=== PATIENT | female | born 1960 | race Caucasian/White ===

== ENCOUNTER → 2017-03-21 | Outpatient (CLI) | payer OTHER | LOC: NUC 14:36 | DX: M85.88 Other specified disorders of bone density and structure, other site (principal); Z78.0 Asymptomatic menopausal state ==

== ENCOUNTER 2018-01-22 05:30 | Inpatient (IN) | payer OTHER ==
[~2018-01-22] VITALS: Ht 162.6 cm; Wt 80.7 kg
--- NOTE | ~2018-01-22 | EKG ---
[address] [address] ELECTROCARDIOGRAM REPORT Name: BETSEY RUCKER Room #: 150-5 ADM IN M.R.#: [id number] Admission: 01/22/18 Attend Phys: Song Meehan Discharge: Date of : 60 Report #: [id number] THIS REPORT FOR: //name// [facility] Test Date: 2018-01-22 Test Time: 07:10:18 Pat Name: BETSEY RUCKER Department: Room: 150 5 Gender: F Terminal Manager: BUBBA : 1960 Requested By: Song Ying Order Number: [id number] MD: Jv Kennedy Measurements Intervals [place] Rate: 86 P: 32 AR: 157 QRS: 16 QRSD: 91 T: 12 QT: 366 QTc: 438 Interpretive Statements Sinus rhythm Low voltage, precordial leads Baseline wander in lead(s) V2 No previous ECG available for comparison Electronically Signed On 01-22-2018 7:51:26 CDT by Jv Kennedy [email or web address] <ELECTRONICALLY SIGNED> By: Jv Kennedy MD, [facility] 01/22/18 [phone] Jv Kennedy MD, [facility] /EPI
--- NOTE | ~2018-01-22 | PATH ---
[facility] [place] [address] [address] PATHOLOGY RPT PROCEDURE Name: CHAIMBETSEY Aaron Room #: 407-P DIS IN M.R.#: [id number] Admission: 01/22/18 Date of : 60 Discharge: 01/24/18 Report #: [id number] Path Case #: [id number] [facility] Accession Number: [id number] . 01 Material submitted: . SIGMOID COLON AND STAPLE RINGS . 01 Clinical history: . Diverticulitis . 02 Diagnosis: Large intestine, sigmoid colon, colectomy: - Marked acute and chronic diverticulitis in a background of extensive diverticulosis. - Margins of resection unremarkable. - One reactive lymph node. - Anastomotic rings showing unremarkable mucosa. (IUV:mgr; 01/25/18) QRQ/01/25/2018 . 02 Electronically signed: . Mimi Warren MD, Pathologist NPI- [id number] . 01 Gross description: . The specimen is received in formalin labeled "Betsey Rucker, sigmoid colon with staple rings". Received is a segment of large bowel measuring 17.5 cm in length by 2.9 cm in diameter. One margin is open, and the opposite margin is stapled closed. A large amount of pericolic fat is attached, measuring up to 3.6 cm in thickness. The serosa is pale anand and smooth in appearance. The specimen is opened along the antimesenteric line to reveal a pale anand mucosa with prominent mucosal folds. Multiple diverticula (over 100) are present ranging from 0.3 to 1.9 cm in depth, with the largest penetrating the muscularis. A single diverticulum contains soft, light brown fecal material; no fecaliths are identified grossly. An abscess pocket is noted in the soft tissue measuring 0.8 cm in maximum dimension indicating a possible ruptured diverticulum; a rupture cannot be identified grossly. The abscess pocket extends to within 0.1 cm of the nearest serosal surface (inked black). Lymph nodes are not identified grossly. . Also received within the specimen container are two anastomotic rings of light anand mucosa, one with a suture present measuring 1.7 x 1.3 x 1.3 cm in greatest dimensions and one without a suture present measuring 1.8 x 1.3 x 0.6 cm in greatest dimensions. The specimen is submitted representatively as follows: . [address] [address] PATHOLOGY RPT PROCEDURE Name: BETSEY RUCKER Room #: 407-P DIS IN M.R.#: [id number] Admission: 01/22/18 Date of : 60 Discharge: 01/24/18 Report #: [id number] Path Case #: [id number] A1: Open large bowel margin A2: Stapled large bowel margin A3-A4: Fertilizer Loader diverticula A5: Abscess pocket, community health program representative A6: Sutured anastomotic ring, community health program representative A7: Non-sutured anastomotic ring A8-A9: Additional sections of abscess pocket (DAC; 01/24/2018) XDC/XDC . 02 Pathologist provided ICD-10: K57.30, K57.32 . 02 CPT . 745027 Performed at: [address], [place] [id number] MD Brice Houston MD Phone: [phone] Performed at: [address] [id number] MD Mimi Warren MD Phone: [phone]
[~2018-01-22 05:30] MED LIST: ATIVAN0.5 MG PO; NAPROSYN500 MG PO; OMEPRAZOLE 20 M20 MG PO
[2018-01-22 07:31] LABS: HEMATOCRIT 40.1 % (37.0-47.0); HEMOGLOBIN 13.6 gm/dL (12.0-15.0)
[2018-01-22 08:17] VITALS: BP 118/69
[2018-01-22 15:10] VITALS: BP 124/84
[2018-01-22 15:40] VITALS: BP 120/79
[2018-01-22 16:10] VITALS: BP 127/75
[2018-01-22 17:10] VITALS: BP 125/84
[2018-01-22 20:00] VITALS: BP 132/87
[2018-01-23] VITALS: BP 122/79
[2018-01-23 04:00] VITALS: BP 118/72
[2018-01-23 06:00] LABS: ABSOLUTE NEUTROPHILS 12.8 thou/uL (1.4-8.2); HEMATOCRIT 37.7 % (37.0-47.0); HEMOGLOBIN 12.8 gm/dL (12.0-15.0); LYMPHOCYTES 6.4 % (24.0-44.0); MCH 28.8 pg (26.0-34.0); MCHC 33.9 g/dL (28.0-37.0); MONOCYTES 8.9 % (1.0-8.0); PLATELET COUNT 255 thou/uL (150-400); POLYS 84.7 % (36.0-66.0); RBC 4.43 mil/uL (4.20-5.00); RDW 12.8 % (10.5-14.5); WBC 15.1 thou/uL (4.0-11.0)
[2018-01-23 06:06] LABS: CALCIUM 8.2 mg/dL (8.5-10.1); POTASSIUM 3.7 mmol/L (3.5-5.1)
[2018-01-23 09:15] VITALS: BP 114/66
[2018-01-23 10:01] VITALS: BP 114/66
[2018-01-23 20:00] VITALS: BP 130/80
[2018-01-24 04:00] VITALS: BP 112/73
[2018-01-24 06:59] LABS: ABSOLUTE NEUTROPHILS 6.2 thou/uL (1.4-8.2); BASOPHILS 0.6 % (0.0-2.0); EOSINOPHILS 1.5 % (0.0-3.0); HEMATOCRIT 33.3 % (37.0-47.0); HEMOGLOBIN 11.5 gm/dL (12.0-15.0); LYMPHOCYTES 14.3 % (24.0-44.0); MCH 29.9 pg (26.0-34.0); MCHC 34.7 g/dL (28.0-37.0); MCV 86.2 fL (80.0-100.0); MONOCYTES 10.3 % (1.0-8.0); PLATELET COUNT 200 thou/uL (150-400); POLYS 73.3 % (36.0-66.0); RBC 3.86 mil/uL (4.20-5.00); RDW 12.8 % (10.5-14.5); WBC 8.5 thou/uL (4.0-11.0)
[2018-01-24 07:07] LABS: CALCIUM 8.3 mg/dL (8.5-10.1); POTASSIUM 3.5 mmol/L (3.5-5.1)
[2018-01-24] MEDS ORDERED: ACETAMINOPHEN325 M1 PO (07:33)
[2018-01-24] MEDS ORDERED: HYDROCODON-ACE1 EAC7 PO (07:33)
[2018-01-24] MEDS ORDERED: TRAMADOL 50 MG50 MG PO (07:33)
[2018-01-24] MEDS ORDERED: ONDANSETRON HCL4 M2 PO (07:33)
[2018-01-24] MEDS ORDERED: NORFLEX100 MG PO (07:33)
[2018-01-24 07:41] VITALS: BP 128/67
[2018-01-24 11:01] VITALS: BP 128/67
== END 2018-01-24 12:09 | disposition home or self-care (01) | DRG 331 ==
LOC: 4N 05:30 → TBA 05:30 → PRE 06:46 → OR 14:17 → EDSTATUS 14:23 → PRE 14:31 → 4N 15:12 → ENTRNSPT 01-24 11:30 → EDTRNSPTSTS 01-24 11:32 → 4N 01-24 12:09
PROVIDERS: Surgery
PROC: 0DTN4ZZ Resection of Sigmoid Colon, Percutaneous Endoscopic Approach (ICD-10-PCS; principal; 2018-01-22)
PROC: 0DNW4ZZ Release Peritoneum, Percutaneous Endoscopic Approach (ICD-10-PCS; principal; 2018-01-22)
DX: K57.32 Diverticulitis of large intestine without perforation or abscess without bleeding (principal); K66.0 Peritoneal adhesions (postprocedural) (postinfection); J45.909 Unspecified asthma, uncomplicated; G56.00 Carpal tunnel syndrome, unspecified upper limb; K21.9 Gastro-esophageal reflux disease without esophagitis; G47.00 Insomnia, unspecified; Z88.1 Allergy status to other antibiotic agents; Z79.899 Other long term (current) drug therapy; Z83.3 Family history of diabetes mellitus; Z82.49 Family history of ischemic heart disease and other diseases of the circulatory system; Z80.3 Family history of malignant neoplasm of breast; Z87.891 Personal history of nicotine dependence
CPT/HCPCS: 10790; 49000; 50010; 50101; 50249; 50386; 50455; 50525; 50555; 51398; 51437; 51489; 52182; 52265; 53310; 54022; 54118; 56524; 56525; 56526; 56641; 56753; 57006; 57092; 57122; 57123; 57130; 57131; 57153; 57154; 62110; 62900; 70005

== ENCOUNTER → 2018-02-18 | Outpatient (CLI) | payer OTHER ==
[~2018-02-18] MED LIST changes: +ACETAMINOPHEN325 M1 PO; +HYDROCODON-ACE1 EAC7 PO; +NORFLEX100 MG PO; +ONDANSETRON HCL4 M2 PO; +TRAMADOL 50 MG50 MG PO
== END ==
LOC: ULTRA 14:36
DX: I70.90 Unspecified atherosclerosis (principal); I63.9 Cerebral infarction, unspecified; M79.662 Pain in left lower leg; M79.661 Pain in right lower leg; R60.0 Localized edema; R55 Syncope and collapse

== ENCOUNTER → 2019-08-08 | Outpatient (CLI) | payer OTHER ==
[~2019-08-08] VITALS: Ht 167.6 cm; Wt 83.9 kg
[~2019-08-08] MED LIST changes: +ASPIR-LOW81 MG PO; +LIPITOR10 MG PO; +PLAVIX 75 MG TA75 MG PO; +PROTONIX40 M2 PO
--- NOTE | ~2019-08-08 | P ---
[facility] [place] [address] [address] [place] [address] PROCEDURE REPORT Name: CHAIMBETSEY Walker Room #: REG [facility]#: [id number] Admission: 08/08/19 Attend Phys: Pete Espinoza Discharge: Date of : 60 Report #: [id number] THIS REPORT FOR: //name// CC: Pete Hill DATE OF SERVICE: 08/08/2019 PROCEDURE PERFORMED: Upper endoscopy. HISTORY OF PRESENT ILLNESS: The patient is a 59-year-old female with a history of anemia and upper GI bleed was hospitalized on 06/19/2019 at [facility], upper endoscopy was performed at that time by my partner, Dr. Montejo showing a gastric ulcer with gastritis. She had been placed on aspirin and Plavix for a previous history of CVA. She was transfused 2 units at that time. Since then has been stable. Last hemoglobin range was approximately 10-1/2 per the patient. She denies any nausea or vomiting. Her weight has been stable. She denies any dysphagia. She has been on Protonix 40 mg a day since that hospitalization. She is here for routine followup to document healing. DESCRIPTION OF PROCEDURE: The risks and benefits of the procedure were explained to the patient, those risks including but not limited to bleeding, perforation and the risk of sedation. She understood these risks and gave informed consent. Sedation was given using propofol per anesthesia. Next, using a standard Olympus upper endoscope, the scope was placed in the patient's mouth and advanced under direct vision through the esophagus, stomach and into the second portion of the duodenum. The esophagus was normal throughout. The GE junction was normal. Upon entering the stomach, a small hiatal hernia was noted. Overall, the gastric mucosa was normal in the fundus and body. In the gastric antrum near the pylorus, a single 3 mm clean white based ulcer was noted. No evidence of bleeding. The pylorus was normal and patent. The duodenal bulb, first and second portion were all normal. The scope was then withdrawn and the procedure terminated. The patient tolerated the procedure well. IMPRESSION: 1. Single antral ulcer, suspect this is a site of previous ulcer appears to be healing, but does persist at this time. No evidence of bleeding. 2. Small hiatal hernia. 3. Otherwise, normal upper endoscopy. RECOMMENDATIONS: 1. Continue long-term Protonix. 2. We will add Carafate b.i.d. as the patient will likely remain on aspirin and Plavix long-term. [address] [address] PROCEDURE REPORT Name: BETSEY RUCKER Room #: REG [facility]#: [id number] Admission: 08/08/19 Attend Phys: Pete Espinoza Discharge: Date of : 60 Report #: [id number] Thank you for allowing me to participate in her care. By: [id number] Pete Rush MD /yola
== END | disposition home or self-care (01) ==
LOC: GI 06:51
DX: K25.9 Gastric ulcer, unspecified as acute or chronic, without hemorrhage or perforation (principal); K44.9 Diaphragmatic hernia without obstruction or gangrene; E78.5 Hyperlipidemia, unspecified; F41.8 Other specified anxiety disorders; M19.90 Unspecified osteoarthritis, unspecified site; Z88.8 Allergy status to other drugs, medicaments and biological substances; Z79.82 Long term (current) use of aspirin; Z79.899 Other long term (current) drug therapy; Z86.73 Personal history of transient ischemic attack (TIA), and cerebral infarction without residual deficits; Z87.891 Personal history of nicotine dependence; Z98.890 Other specified postprocedural states; K21.9 Gastro-esophageal reflux disease without esophagitis; Z87.19 Personal history of other diseases of the digestive system; Z90.710 Acquired absence of both cervix and uterus; Z98.0 Intestinal bypass and anastomosis status
CPT/HCPCS: 62110; 62900

== ENCOUNTER → 2019-08-27 | Outpatient (CLI) | payer OTHER | LOC: CAT 14:53 | DX: K57.92 Diverticulitis of intestine, part unspecified, without perforation or abscess without bleeding (principal); M41.85 Other forms of scoliosis, thoracolumbar region; K76.89 Other specified diseases of liver; Z90.710 Acquired absence of both cervix and uterus ==

== ENCOUNTER → 2019-10-17 | Outpatient (CLI) | payer OTHER | LOC: NUC 07:31 | DX: R10.11 Right upper quadrant pain (principal) ==